=== PATIENT | female | born 1990 | race Caucasian/White ===

== ENCOUNTER 2020-07-03 08:32 | Inpatient (IN) | payer BC ==
[2020-07-02 23:00] VITALS: BP 114/57; PULSE 81
[2020-07-02 23:30] VITALS: BP 111/55; PULSE 85
[2020-07-02 23:45] VITALS: BP 131/63; PULSE 83
[~2020-07-03] VITALS: Ht 157.5 cm; Wt 60.0 kg
[2020-07-03] VITALS (33 sets, daily range): BP systolic 103–141; BP diastolic 55–82; PULSE 73–111; TEMP 97.4–98
--- NOTE | 2020-07-03 08:30 | NUR ---
Patient ambulatory onto unit for labor check. Patient reports contractions every 2 minutes, starting at 2200 last evening. Patient reports good movement, denies vaginal bleeding or leaking of fluid. G3, 37.3wks gestation. GBS-. Denies or medical complications. EFMs on, VS taken. SVE /-1 per Jacky PEREYRA. Assessment completed. Will notify for further orders.
[~2020-07-03 08:32] MED LIST: IBU600 MG PO; MOTRIN 600600 MG/TAB PO; PERCOCET 325 MG1 TA2 PO; PRENATAL1 TA7 PO
--- NOTE | 2020-07-03 09:30 | NUR ---
FAZALE rechecked, -/-1 per Jacky PEREYRA. Admission orders received from . IV started in left wrist by Jacky RN at 0940. to bedside to discuss plan of care with patient. Bedside ultrasound used to confirm vertex presentation by provider at 0945. Consents signed. Patient desires intermittent monitoring. EFMs off at 0955 to use birthing ball and ambulate. Denies questions or needs at this time. Call light within reach.
--- NOTE | 2020-07-03 10:00 | NUR ---
Patient declines COVID-19 testing.
[2020-07-03 10:22] LABS: BASO % 0.2 % (0.0-2.0); EOS % 0.3 % (0-4.0); GRAN # 4.8 (1.4-6.5); GRAN % 76.8 % (42.2-75.2); HEMATOCRIT 35.3 % (37.0-47.0); HEMOGLOBIN 12.4 g/dl (12.5-16.0); LYMPH % 15.6 % (20.0-51.0); MEAN CELL VOLUME 93 fl (80.0-100.0); MEAN CORPUSCULAR HEMOGLOBIN 33 pg (27.0-31.0); MEAN CORPUSCULAR HGB CONC 35 g/dl (33.0-37.0); MEAN PLATELET VOLUME 10.4 fl (7.4-10.4); MONO # 0.4 (0.1-0.6); MONO % 6.6 % (1.7-9.3); PLATELET COUNT 189 K/mm3 (130-400); RED BLOOD COUNT 3.79 M/mm3 (4.10-5.30); REDCELL DISTRIBUTION WIDTH-CV 12.5 % (11.5-14.5)
--- NOTE | 2020-07-03 10:35 | NUR ---
Patient states contraction intensity and frequency are unchanged. Patient back to bed. EFMs on. Denies needs at this time. Call light within reach.
--- NOTE | 2020-07-03 11:00 | NUR ---
EFMs off. Patient up to ambulate hallway. States contraction pain is unchanged. Will continue to monitor. Denies needs at this time.
--- NOTE | 2020-07-03 11:40 | NUR ---
Patient states contractions are getting more intense. Patient has been ambulating in hallway and using the birthing ball in the room. EFMs on. SVE -/-1 per this RN. Patient denies needs at this time. Call light within reach.
--- NOTE | 2020-07-03 12:05 | NUR ---
EFMs off. Patient up to ambulate and use birthing ball. Denies needs at this time.
--- NOTE | 2020-07-03 12:35 | NUR ---
to bedside. Plan of care again discussed. Provider offered AROM, patient declined at this time. Patient wants to try to deliver without an epidural. EFMs back on. Call light within reach.
--- NOTE | 2020-07-03 13:05 | NUR ---
EFMs off. Patient up to ambulate and use birthing ball. Denies needs.
--- NOTE | 2020-07-03 13:40 | NUR ---
Patient returns to bed. States contractions are still painful, rating pain at 6-7/10. SVE unchanged, -/-1. Will notify for further orders. EFMs on. Call light within reach.
--- NOTE | 2020-07-03 14:50 | NUR ---
EFMs off. Patient up to ambulate and use birthing ball. Denies needs.
--- NOTE | 2020-07-03 15:35 | NUR ---
SVE unchanged, -/-1. Patient updated to no cervical change. Patient okay if provider wants to come break her water. EFMs on. Call light within reach.
--- NOTE | 2020-07-03 16:00 | NUR ---
to bedside. Plan of care discussed with patient. Questions answered. SVE 3-4/80/-1 per provider. AROM at 1603, moderate amount of clear fluid noted with exam. Call light within reach.
--- NOTE | 2020-07-03 16:30 | NUR ---
Patient reports contractions becoming more intense now that her water is broken. Denies pain intervention at this time. Patient desires to use birthing ball at bedside. EFMs off.
--- NOTE | 2020-07-03 17:00 | NUR ---
Patient breathing through contractions while on birthing ball. Ball moved closer to monitors, EFMs on. Patient remains on birthing ball. Denies need for pain intervention at this time. Will continue ot monitor. Call light within reach.
--- NOTE | 2020-07-03 18:15 | NUR ---
Report to Linda RN to assume care of patient. Patient up to bathroom, then to ambulate within the room.
--- NOTE | 2020-07-03 18:45 | NUR ---
at bedside discussing plan of care with patient. Will augment with pitocin at this time, pt agreeable to plan.
--- NOTE | 2020-07-03 19:06 | NUR ---
Category 1 FHR tracing obtained. Contractions every 5-7 minutes. Pitocin initiated at 2 mu/min per protocol.
--- NOTE | 2020-07-03 22:45 | NUR ---
2225 - Category 1 FHR tracing. Monitors off. Pt up to bathroom to void. 2235 - Galen Azar CRNA at bedside for epidural placement. Pt positioned to sitting on edge of bed. Epidural procedure, risks, and benefits reviewed with patient, pt verbalized understanding. 2245 - Test dose by ADRIANE Herrera, pt denies any adverse reactions. Pt reports feeling a lot of rectal pressure with contractions during epidural placement. 2250 - Pt positioned to wedge left. Call light within reach, bed in low and locked position. SVE 7/90/0 See anesthesia record.
--- NOTE | 2020-07-03 23:09 | NUR ---
2300 - Pt visibly uncomfortable and feeling more pressure. SVE 8/90/0. Nursery nurse HAFSA Esposiot updated. 230 - Pt involuntarily pushing. Dr. Birch called to bedside. 230 - SVE 10100/0. HAFSA Esposito at bedside. Room set up for delivery. Pt positioned into footplates. Dr. Birch gowned and gloved at perineum. Pushing techniques reviewed with patient. Pt verbalized understanding. 2308 - Spontaneous delivery of viable infant boy. placed on mothers abdomen. Care of infant assumed to HAFSA Esposito. Delayed cord clamping for about 1 minute. Cord clamped x 2 and cut by mother. Pitocin off. Cord blood obtained. 3 - Spontaneous delivery of placenta. Fundal massage by Dr. Birch, firm and down 1 from umbilicus. No lacerations per Dr. Birch. Pitocin restarted at 333 mL/hr per protocol. Epidural pump off. 5 - Pericare provided. Clean chux beneath patient. Ice pack to perineum. Pt repositioned in bed for comfort. recovery started. See physician delivery note.
[2020-07-04] VITALS (9 sets, daily range): BP systolic 106–133; BP diastolic 58–82; PULSE 73–90; TEMP 98–98.9
--- NOTE | 2020-07-04 01:30 | NUR ---
Pt called out wanting to ambulate to bathroom. Upon entering room patient already sitting on edge of bed. Epidural catheter removed at this time. Tip, smooth, blue, and intact. pt then states that she is feeling light headed. Positioned back into bed to use bed dumont. Pt attempted to use bed dumont but was unable to at this time. Fist size clot noted in bed dumont. Fundal check performed, fundus firm but another fist size clot out. Monitored in room for 20 more minutes. Vital signs within normal limits. Another fundal massage perfomed and scant bleeding noted. Pericare provided in bed. Mesh panties and peripad on. Clean gown on. Pt transferred to room 212 with belongings and baby.
--- NOTE | 2020-07-04 02:00 | NUR ---
Pt up to bathroom to void. Unable to void at this time. Educated on need of 3 measured voids. Pericare performed. Pt reports feeling slightly light headed again. Assisted back to bed. Educated to not get out of bed without assistance. Few small size clots noted in hat after attempt to void. Fundal massage performed once back in bed and fundus firm and down 1 from umbilicus.
--- NOTE | 2020-07-04 05:15 | NUR ---
Pt called out asking for new gown. Second void done. 2 palm sized clots noted in toilet and half chux pad saturated with blood. Fundal massage performed, fundus firm and down 1 from umbilicus with scant bleeding during massage. Pt denies feeling light headed, dizzy, or short of breath. 0600 - Pt called out again stating that she passed another clot. Fist size clot on peripad. Pt back to bed. Fundal massage performed, firm and down 1 from umbilicus with scant bleeding during massage. Pt reports feeling fine. Updated on plan of care and will have labs down this am. Will continue to monitor. Educated patient to report any more clots or bleeding.
[2020-07-04 08:50] LABS: HEMOGLOBIN 10.9 g/dl (12.5-16.0)
[2020-07-04 08:53] LABS: HEMATOCRIT 31.6 % (37.0-47.0)
[2020-07-05 08:00] VITALS: BP 118/74; PULSE 85; TEMP 97.6
--- NOTE | 2020-07-05 10:23 | NUR ---
Initial visit; Mom thanked for offering congratulations for the of her son. [facility] thanked patient for choosing [facility].
--- NOTE | 2020-07-05 10:37 | NUR ---
0930 DISCHARGE INSTRUCTIONS REVIEWED WITH PATIENT. PATIENT VERBALIZED UNDERSTANDING. PATIENT WILL NOTIFY THIS RN WHEN ARRIVES TO LEAVE. 1030 ALL PERSONAL BELONGINGS GATHERED FROM PATIENT ROOM. PATIENT LEFT AMBULATORY AND IN NO APPARENT DISTRESS. PATIENT ACCOMPANIED BY THIS RN. PATIENT MET SPOUSE OUTSIDE.
== END 2020-07-05 10:30 | disposition home or self-care (01) | DRG 807 ==
LOC: LDRO 08:32 → LDR 08:35 → LDRO 09:40 → OB 09:41 → LDR 09:41 → OB 07-04 02:00
PROVIDERS: ADMIT Obstetrics & Gynecology
PROC: 10E0XZZ Delivery of Products of Conception, External Approach (ICD-10-PCS; principal; 2020-07-03)
PROC: 10907ZC Drainage of Amniotic Fluid, Therapeutic from Products of Conception, Via Natural or Artificial Opening (ICD-10-PCS; 2020-07-03)
DX: O80 Encounter for full-term uncomplicated delivery (principal); Z37.0 Single live birth; Z3A.37 37 weeks gestation of pregnancy
CPT/HCPCS: J2590; J7120